=== PATIENT | male | born 1990 | race Caucasian/White ===

== ENCOUNTER → 2025-10-20 | Emergency (ER) | payer MEDICAID ==
[~2025-10-20] VITALS: Ht 177.8 cm; Wt 99.8 kg
[~2025-10-20] MED LIST: BACLOFEN (10 MG) 10 MG TABLET ONE; IBUP-1490 PO; KETOROLAC TROMETHAMINE 15 MG/ML VIAL ONE; LIDO30AD10 TP; METH-649 PO; dexaMETHasone SOD PHOSPHATE 4 MG/ML VIAL ONE
[2025-10-20] MEDS: BACLOFEN (10 MG) 10 MG TABLET PO ONE (15:19)
[2025-10-20] MEDS: KETOROLAC TROMETHAMINE 15 MG/ML VIAL IM ONE (15:19)
[2025-10-20] MEDS: dexaMETHasone SOD PHOSPHATE 4 MG/ML VIAL IM ONE (15:19)
[2025-10-20 16:06] VITALS: BP 138/82; TEMP 98.5; O2SAT 99
== END | disposition home or self-care (01) ==
LOC: ER 14:17
DX: M54.50 Low back pain, unspecified (principal); M79.604 Pain in right leg
CPT/HCPCS: 99284; 96372 ×2; 72110; J1885; J1100